=== PATIENT | male | born 1985 | race Caucasian/White ===

== ENCOUNTER 2023-02-25 07:31 | Inpatient (IN) | payer OTHER, BC ==
[2023-02-25] MEDS ORDERED: SODIUM CHLORIDE 0.9% 500 ML 500 ML IV STA (07:36)
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
[2023-02-25 07:42] LABS: Glucose,Whole Blood 197 mg/dL (70-110)
[2023-02-25 07:56] LABS: Basophils % (A) 0 %; Eosinophils # (A) 0.1 k/uL (0-0.7); Eosinophils % (A) 1 %; HGB 14.8 gm/dL (13.0-17.5); Lymphocytes # (A) 2.7 k/uL (1.0-4.8); Lymphocytes % (A) 27 %; MCHC 34.3 g/dL (31.0-37.0); MCV 93.3 fL (80.0-100.0); Monocytes # (A) 0.4 k/uL (0-1.0); Monocytes % (A) 4 %; Neutrophils # (A) 6.4 k/uL (1.3-7.7); Neutrophils % (A) 66 %; Platelet Count 192 k/uL (150-450); RBC 4.61 m/uL (4.30-5.90); RDW 12.5 % (11.5-15.5); WBC 9.8 k/uL (3.8-10.6)
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
[2023-02-25 08:08] LABS: AST 35 U/L (17-59); African American GFR (CKD) >90 (>60 ml/min/1.73 sqM); Albumin 4.2 g/dL (3.5-5.0); Alcohol <10 mg/dL; Alkaline Phosphatase 86 U/L (38-126); Anion Gap 15 mmol/L; Blood Urea Nitrogen 12 mg/dL (9-20); Calcium 8.9 mg/dL (8.4-10.2); Carbon Dioxide 17 mmol/L (22-30); Chloride 105 mmol/L (98-107); Glucose 198 mg/dL (74-99); Non-African American GFR(CKD) 81 (>60 ml/min/1.73 sqM); Potassium 4.1 mmol/L (3.5-5.1); Sodium 137 mmol/L (137-145); Total Bilirubin 0.6 mg/dL (0.2-1.3); Total Protein 7.4 g/dL (6.3-8.2)
[2023-02-25 08:16] LABS: ALT 37 U/L (4-49); INR 1.1 (<1.2); Prothrombin Time 11.4 sec (9.0-12.0)
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
[2023-02-25] MEDS ORDERED: HYDROmorphone 0.5 MG/0.5 ML SYRINGE IVP STA ×2 (08:27→09:04)
[2023-02-25 08:33] LABS: Partial Thromboplastin Time 20.6 sec (22.0-30.0)
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
[2023-02-25] MEDS ORDERED: ONDANSETRON 4 MG/2 ML VIAL IVP STA ×2 (09:32→09:35)
[2023-02-25] MEDS ORDERED: LORazepam 2 MG/ML INJ IV STA (09:32)
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
[2023-02-25] MEDS ORDERED: SODIUM CHLORIDE 0.9% 1,000 ML IV ONE (09:58)
[2023-02-25] MEDS: HYDROmorphone 0.5 MG/0.5 ML SYRINGE IVP PRN ×2 (10:43→14:07)
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
[2023-02-25] MEDS ORDERED: METOCLOPRAMIDE 5 MG/ML 2 ML VIAL IVP STA (14:13)
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
[2023-02-25] MEDS ORDERED: HYDROcodone/APAP 5-325MG 1 EACH TAB PO STA (16:09)
[2023-02-25] MEDS ORDERED: HYDROcodone/APAP 5-325MG 1 EACH TAB PO PRN (16:44)
[2023-02-25] MEDS ORDERED: ONDANSETRON 4 MG/2 ML VIAL IVP PRN (17:27)
[2023-02-25] MEDS: ONDANSETRON 4 MG/2 ML VIAL IVP PRN (17:33)
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
[2023-02-25 18:04] LABS: Cocaine Screen,Urine Not Detected (NotDetected); Opiate Screen,Urine Detected (NotDetected); Phencyclidine Screen,Urine Not Detected (NotDetected); Urn Cannabinoid Scrn Detected (NotDetected)
[2023-02-25 18:05] LABS: Amphetamine Screen,Urine Not Detected (NotDetected); Barbiturate Screen,Urine Not Detected (NotDetected); Benzodiazepines Screen,Urine Detected (NotDetected); Methadone Screen, Urine Not Detected (NotDetected); Oxycodone Screen, Urine Not Detected (NotDetected); Tricyclic Antidepressant,Urine Not Detected (NotDetected)
[2023-02-25] MEDS: KETOROLAC 15 MG/ML 1 ML VIAL IVP SCH (18:08)
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
[2023-02-25] MEDS: levETIRAcetam IV 500 MG/5 ML VIAL IVP SCH ×2 (20:26→20:51)
[2023-02-25] MEDS: MORPHINE SULFATE 2 MG/ML SYRINGE IVP PRN (20:26)
[2023-02-25] MEDS ORDERED: ALPRAZolam 0.25 MG TAB PO SCH (22:15)
[2023-02-25] MEDS: ALPRAZolam 0.25 MG TAB PO PRN (22:21)
[2023-02-25] MEDS: MELATONIN 5 MG TABLET PO SCH (22:21)
[2023-02-25] MEDS: traMADol 50 MG TAB PO PRN (22:28)
[2023-02-26] MEDS: KETOROLAC 15 MG/ML 1 ML VIAL IVP SCH ×5 (00:26→23:24)
[2023-02-26] MEDS: PANTOPRAZOLE 40 MG TABLET PO SCH (06:13)
[2023-02-26] MEDS: traMADol 50 MG TAB PO PRN ×3 (08:41→21:06)
[2023-02-26] MEDS: levETIRAcetam IV 500 MG/5 ML VIAL IVP SCH (08:43)
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
[2023-02-26] MEDS ORDERED: THIAMINE 100 MG TAB PO SCH (10:45)
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
[2023-02-26 13:03] LABS: Basophils % (A) 0 %; Eosinophils % (A) 0 %; HCT 41.7 % (39.0-53.0); HGB 14.1 gm/dL (13.0-17.5); Lymphocytes # (A) 1.3 k/uL (1.0-4.8); Lymphocytes % (A) 15 %; MCH 31.5 pg (25.0-35.0); MCHC 33.7 g/dL (31.0-37.0); MCV 93.3 fL (80.0-100.0); Mean Platelet Volume 8.1; Monocytes # (A) 0.4 k/uL (0-1.0); Monocytes % (A) 5 %; Neutrophils # (A) 6.8 k/uL (1.3-7.7); Neutrophils % (A) 79 %; Platelet Count 151 k/uL (150-450); RBC 4.47 m/uL (4.30-5.90); RDW 12.7 % (11.5-15.5); WBC 8.6 k/uL (3.8-10.6)
--- NOTE | 2023-02-26 13:33 | P.PN ---
Progress Note - Text Progress Note Date: 02/26/23 Patient seen and examined, I reviewed the note, discussed the case with the LINING SCRUBBER first hand and agree with the assessment and plan of Cruz Coeras NP. Please see my notes below for any additional recommendations. Family bedside. We discussed treatment options at this time we are still trying to treat him conservatively with a FLOOR SCRUBBER brace. He is sitting up at a 45 angle in bed and states he has no pain he moves his arms to pain but he does complain that he feels very stiff in between her shoulder blades and on the upper portion of his back as well as his chest. He denies any paresthesias numbness or tingling lower extremity weakness or any other issues related to this. He states he has not stood up yet. He denies inferior surface breath or chest pain. He has good strength bilateral lower extremities is also nerves intact at this time. We discussed different options of the same way for FLOOR SCRUBBER brace once he gets the FLOOR SCRUBBER brace he can get up and move around with it on and work with therapy. If he tolerates this well that you will continue with conservative management if he does not do without evidence questions about surgical management.
--- NOTE | 2023-02-26 13:55 | US ---
EXAMINATION TYPE: US carotid duplex BILAT DATE OF EXAM: 02/26/2023 COMPARISON: NONE CLINICAL INDICATION: Male, 37 years old with history of transient global amnesia; TIA TECHNIQUE: Carotid duplex ultrasound examination. Indirect Doppler criteria was utilized. FINDINGS: EXAM MEASUREMENTS: RIGHT: Peak Systolic Velocity (PSV) cm/sec ----- Right CCA: 90 ----- Right ICA: 74 ----- Right ECA: 82.7 ICA/CCA ratio: 0.8 RIGHT: End Diastole cm/sec ----- Right CCA: 26 ----- Right ICA: 34.8 ----- Right ECA: 7.1 LEFT: Peak Systolic Velocity (PSV) cm/sec ----- Left CCA: 79.8 ----- Left ICA: 76.9 ----- Left ECA: 81.3 ICA/CCA ratio: 1.0 LEFT: End Diastole cm/sec ----- Left CCA: 21.7 ----- Left ICA: 31.8 ----- Left ECA: 11.5 VERTEBRALS (direction of flow): Right Vertebral: Antegrade Left Vertebral: Antegrade Rhythm: Normal BOAT JOINER NOTES: No significant stenosis seen IMPRESSION: No significant hemodynamic stenosis Criteria for Assigning % of Stenosis / Diameter reduction (Estimation based on the indirect measurements of the internal carotid artery velocities (ICA PSV). 1. Normal (no stenosis)=ICA PSV < 125 cm/s: ratio < 2.0: ICA EDV<40 cm/s. 2. Less than 50% stenosis=ICA PSV < 125 cm/s: ratio < 2.0: ICA EDV<40 cm/s. 3. 50 to 69% stenosis=ICA PSV of 125 to 230 cm/s: ration 2.0 ? 4.0: ICA EDV 40-100 cm/s. 4. Greater than 70% stenosis to near occlusion= ICA PSV > 230 cm/s: ratio > 4.0: ICA EDV > 100 cm/s. 5. Near occlusion= ICA PSV velocities may be low or undetectable: variable ratio and ICA EDV. 6. Total occlusion=unable to detect flow.
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
--- NOTE | 2023-02-26 17:52 | CA ---
Transthoracic Echo Report Name: Kermit Aranda Age: 37 Gender: M : 1985 Exam Date: 02/26/2023 13:55 Exam Location: [facility] Ht (in): 70 Wt (lb): 166 Ordering Physician: Vega Saba MD Attending/Referring Phys: Director Of Mechanical Engineering Magdaleno Arcos Procedure CPT: Indications: Transient global amnesia Cardiac Hx: Technical Quality: Fair Contrast 1: Total Dose (mL): Contrast 2: Total Dose (mL): MEASUREMENTS (Male / Female) Normal Values 2D ECHO LV Diastolic Diameter PLAX 4.1 cm 4.2 - 5.9 / 3.9 - 5.3 cm LV Systolic Diameter PLAX 2.9 cm IVS Diastolic Thickness 1.0 cm 0.6 - 1.0 / 0.6 - 0.9 cm LVPW Diastolic Thickness 1.1 cm 0.6 - 1.0 / 0.6 - 0.9 cm LV Relative Wall Thickness 0.5 RV Internal Dim ED PLAX 2.7 cm LVOT Diameter 2.0 cm Aortic Root Diameter 2.9 cm LA Systolic Diameter LX 1.7 cm 3.0 - 4.0 / 2.7 - 3.8 cm LV Diastolic Volume MOD BP 55.1 cm??? 67 - 155 / 56 - 104 cm??? LV Systolic Volume MOD BP 16.5 cm??? 22 - 58 / 19 - 49 cm??? LV Ejection Fraction MOD BP 70.0 % >= 55 % LV Cardiac Index MOD BP 1158.6 cm???/min???m??? LV Diastolic Volume MOD 4C 65.2 cm??? LV Systolic Volume MOD 4C 27.1 cm??? LV Ejection Fraction MOD 4C 58.4 % LV Cardiac Index MOD 4C 1142.0 cm???/min???m??? LV Diastolic Length 4C 8.4 cm LV Systolic Length 4C 6.9 cm LV Diastolic Volume MOD 2C 46.6 cm??? LV Systolic Volume MOD 2C 10.0 cm??? LV Ejection Fraction MOD 2C 78.5 % LV Cardiac Index MOD 2C 1098.5 cm???/min???m??? LV Diastolic Length 2C 8.2 cm LV Systolic Length 2C 6.4 cm LA Volume 29.2 cm??? 18 - 58 / 22 - 52 cm??? Ascending Aorta Diameter 2.7 cm DOPPLER AV Peak Velocity 111.2 cm/s AV Peak Gradient 4.9 mmHg LVOT Peak Velocity 124.2 cm/s LVOT Peak Gradient 6.2 mmHg AV Area Cont Eq pk 3.5 cm??? MV Peak Velocity 99.4 cm/s MV Peak Gradient 4.0 mmHg MV Mean Velocity 42.6 cm/s MV Mean Gradient 0.9 mmHg MV Velocity Time Integral 39.0 cm MR Peak Velocity 114.7 cm/s MR Peak Gradient 5.3 mmHg Mitral E Point Velocity 101.7 cm/s Mitral A Point Velocity 45.3 cm/s Mitral E to A Ratio 2.2 MV Deceleration Time 209.3 ms MV E' Velocity 13.5 cm/s Mitral E to MV E' Ratio 7.5 TR Peak Velocity 93.5 cm/s TR Peak Gradient 3.5 mmHg Right Ventricular Systolic Press 8.5 mmHg FINDINGS Left Ventricle Normal LV size and wall thickness. Left ventricular ejection fraction is estimated at _55-60 %. Right Ventricle Normal right ventricular size. Right Atrium Normal right atrial size. Left Atrium Normal left atrial size. LA volume index= 15ml/m2 Mitral Valve Structurally normal mitral valve. Trace MR. Aortic Valve Trileaflet aortic valve. No aortic valve stenosis or regurgitation. Tricuspid Valve Structurally normal tricuspid valve. Trace TR. Pulmonic Valve Structurally normal pulmonic valve. No pulmonic regurgitation. Pericardium Normal pericardium. Aorta Normal size aortic root and proximal ascending aorta. CONCLUSIONS Normal LV systolic function Previewed by: Dr. Pineda Heath MD (Electronically Signed) Final Date: 26 February 2023 17:52
[2023-02-26] MEDS: ALPRAZolam 0.25 MG TAB PO PRN (19:12)
--- NOTE | 2023-02-26 19:17 | EEG ---
ELECTROENCEPHALOGRAM REPORT CLINICAL HISTORY: This is a 37-year-old gentleman with episode of transient global amnesia. The video EEG is obtained to evaluate for seizure and epileptiform activity. RELEVANT MEDICATIONS: Ativan. EEG TYPE: A routine 21-channel EEG with video using the 10/20 electrode placement system. DESCRIPTION: Wakefulness is only obtained. During awake state, the posterior-dominant rhythm consists of [id number] voltage of 9 to 10 Hz activity, that is well modulated and well sustained. There is no physiological stage II sleep architecture. There is no focal slowing. There is a moderate amount of left hemispheric myogenic artifact. There is also a [id number] amount of sweat artifact throughout the study. INTERICTAL AND ICTAL: None. ACTIVATION PROCEDURE: Photic stimulation did not evoke a posterior driving response. There is no abnormality during the photic stimulation. Hyperventilation is not performed. CLINICAL INTERPRETATION: This is a somewhat limited study because of myogenic artifact as well as sweat artifact. Otherwise, the background is normal, and there is no focal slowing, epileptiform discharge, or seizure on the EEG. A normal routine EEG does not rule out underlying epilepsy. Consider repeating the study down the line. Clinical correlation is recommended. MMODL / IJN: [id number] / MTDD
[2023-02-26] MEDS: MELATONIN 5 MG TABLET PO SCH (21:06)
[2023-02-27] MEDS: ALPRAZolam 0.25 MG TAB PO PRN ×2 (05:02→20:08)
[2023-02-27] MEDS: PANTOPRAZOLE 40 MG TABLET PO SCH (05:02)
[2023-02-27] MEDS: KETOROLAC 15 MG/ML 1 ML VIAL IVP SCH ×2 (05:02→20:07)
[2023-02-27 09:07] LABS: Basophils % (A) 0 %; Eosinophils # (A) 0.1 k/uL (0-0.7); Eosinophils % (A) 1 %; HCT 44.4 % (39.0-53.0); Lymphocytes # (A) 1.3 k/uL (1.0-4.8); Lymphocytes % (A) 18 %; MCH 31.7 pg (25.0-35.0); MCHC 33.8 g/dL (31.0-37.0); MCV 93.9 fL (80.0-100.0); Mean Platelet Volume 8.5; Monocytes # (A) 0.3 k/uL (0-1.0); Monocytes % (A) 4 %; Neutrophils # (A) 5.7 k/uL (1.3-7.7); Neutrophils % (A) 77 %; Platelet Count 152 k/uL (150-450); RBC 4.73 m/uL (4.30-5.90); RDW 12.8 % (11.5-15.5); WBC 7.4 k/uL (3.8-10.6)
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
[2023-02-27 09:27] LABS: ALT 22 U/L (4-49); AST 23 U/L (17-59); African American GFR (CKD) >90 (>60 ml/min/1.73 sqM); Albumin 4.2 g/dL (3.5-5.0); Alkaline Phosphatase 63 U/L (38-126); Anion Gap 7 mmol/L; Blood Urea Nitrogen 10 mg/dL (9-20); Calcium 9.1 mg/dL (8.4-10.2); Carbon Dioxide 29 mmol/L (22-30); Chloride 102 mmol/L (98-107); Glucose 122 mg/dL (74-99); Non-African American GFR(CKD) >90 (>60 ml/min/1.73 sqM); Potassium 3.7 mmol/L (3.5-5.1); Sodium 138 mmol/L (137-145); Total Bilirubin 0.8 mg/dL (0.2-1.3); Total Protein 7.4 g/dL (6.3-8.2)
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
[2023-02-27] MEDS: traMADol 50 MG TAB PO PRN ×2 (11:55→20:08)
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
[2023-02-27] MEDS: MORPHINE SULFATE 2 MG/ML SYRINGE IVP PRN (17:03)
[2023-02-27 18:02] LABS: Appearance,Urine Clear (Clear); Bacteria,Urine Many /hpf; Bilirubin,Urine Negative (Negative); Blood,Urine Small (Negative); Color,Urine Light Yellow; Glucose,Urine (UA) Negative (Negative); Ketones,Urine Trace (Negative); Leukocyte Esterase,Urine Large (Negative); Mucus,Urine Rare /hpf; Nitrite,Urine Positive (Negative); PH, Urine 6.5 (5.0-8.0); Protein,Urine Negative (Negative); RBC,Urine 2 /hpf (0-5); Urobilinogen,Urine <2.0 mg/dL (<2.0); WBC,Urine 24 /hpf (0-5)
[2023-02-27] MEDS: MELATONIN 5 MG TABLET PO SCH (20:08)
[2023-02-28] MEDS: traMADol 50 MG TAB PO PRN ×4 (04:11→22:35)
[2023-02-28] MEDS: PANTOPRAZOLE 40 MG TABLET PO SCH (04:11)
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
[2023-02-28] MEDS: TAMSULOSIN 0.4 MG CAP.ER.24H PO SCH (08:19)
[2023-02-28] MEDS: ALPRAZolam 0.25 MG TAB PO PRN ×2 (08:27→22:37)
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
[2023-02-28 09:32] LABS: Basophils % (A) 0 %; Eosinophils # (A) 0.1 k/uL (0-0.7); Eosinophils % (A) 1 %; HCT 45.7 % (39.0-53.0); HGB 15.6 gm/dL (13.0-17.5); Lymphocytes # (A) 1.7 k/uL (1.0-4.8); Lymphocytes % (A) 21 %; MCHC 34.2 g/dL (31.0-37.0); MCV 93.7 fL (80.0-100.0); Mean Platelet Volume 8.2; Monocytes # (A) 0.5 k/uL (0-1.0); Monocytes % (A) 6 %; Neutrophils # (A) 5.6 k/uL (1.3-7.7); Neutrophils % (A) 70 %; Platelet Count 153 k/uL (150-450); RBC 4.88 m/uL (4.30-5.90); RDW 12.4 % (11.5-15.5)
[2023-02-28 09:46] LABS: ALT 21 U/L (4-49); African American GFR (CKD) >90 (>60 ml/min/1.73 sqM); Albumin 4.4 g/dL (3.5-5.0); Anion Gap 9 mmol/L; Blood Urea Nitrogen 12 mg/dL (9-20); Calcium 9.2 mg/dL (8.4-10.2); Carbon Dioxide 28 mmol/L (22-30); Chloride 103 mmol/L (98-107); Glucose 98 mg/dL (74-99); Non-African American GFR(CKD) >90 (>60 ml/min/1.73 sqM); Sodium 140 mmol/L (137-145); Total Bilirubin 0.9 mg/dL (0.2-1.3)
[2023-02-28 09:56] LABS: AST 30 U/L (17-59); Potassium 4.1 mmol/L (3.5-5.1)
[2023-02-28 09:57] LABS: Alkaline Phosphatase 69 U/L (38-126)
[2023-02-28] MEDS: DOCUSATE 100 MG CAP PO PRN (14:07)
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
[2023-02-28] MEDS: MELATONIN 5 MG TABLET PO SCH (22:35)
[2023-03-01] MEDS: PANTOPRAZOLE 40 MG TABLET PO SCH (04:56)
[2023-03-01] MEDS: traMADol 50 MG TAB PO PRN ×2 (04:56→07:49)
[2023-03-01] MEDS: ONDANSETRON 4 MG/2 ML VIAL IVP PRN (07:49)
[2023-03-01] MEDS: TAMSULOSIN 0.4 MG CAP.ER.24H PO SCH (07:50)
[2023-03-01] MEDS: DOCUSATE 100 MG CAP PO PRN (07:58)
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
[2023-03-01 11:32] VITALS: BP 145/82; PULSE 62; RESP 16; TEMP 97.8
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
[2023-03-01 11:51] LABS: Appearance,Urine Clear (Clear); Bacteria,Urine Occasional /hpf; Bilirubin,Urine Negative (Negative); Blood,Urine Trace (Negative); Color,Urine Light Yellow; Glucose,Urine (UA) Negative (Negative); Ketones,Urine Negative (Negative); Leukocyte Esterase,Urine Large (Negative); Nitrite,Urine Positive (Negative); Protein,Urine Negative (Negative); RBC,Urine 2 /hpf (0-5); Specific Gravity,Urine 1.006 (1.001-1.035); Urobilinogen,Urine <2.0 mg/dL (<2.0); WBC,Urine 32 /hpf (0-5)
[2023-03-01] MEDS: ALPRAZolam 0.25 MG TAB PO PRN (15:35)
== END 2023-03-01 16:15 | disposition home or self-care (01) | DRG 565 ==
LOC: EC 07:31 → 3SCARD 09:58
PROVIDERS: ADMIT Internal Medicine; ATTEND Internal Medicine
DX: S22.22XA Fracture of body of sternum, initial encounter for closed fracture (principal); S22.029A Unspecified fracture of second thoracic vertebra, initial encounter for closed fracture; S32.010A Wedge compression fracture of first lumbar vertebra, initial encounter for closed fracture; S22.039A Unspecified fracture of third thoracic vertebra, initial encounter for closed fracture; S22.049A Unspecified fracture of fourth thoracic vertebra, initial encounter for closed fracture; S22.051A Stable burst fracture of T5-T6 vertebra, initial encounter for closed fracture; F32.A Depression, unspecified; F10.21 Alcohol dependence, in remission; G45.4 Transient global amnesia; E78.5 Hyperlipidemia, unspecified; S80.812A Abrasion, left lower leg, initial encounter; S80.811A Abrasion, right lower leg, initial encounter; S10.91XA Abrasion of unspecified part of neck, initial encounter; S20.319A Abrasion of unspecified front wall of thorax, initial encounter; F41.9 Anxiety disorder, unspecified; R33.9 Retention of urine, unspecified; R53.83 Other fatigue; T43.225A Adverse effect of selective serotonin reuptake inhibitors, initial encounter; Z79.899 Other long term (current) drug therapy; Z88.5 Allergy status to narcotic agent; V44.5XXA Car driver injured in collision with heavy transport vehicle or bus in traffic accident, initial encounter; W22.11XA Striking against or struck by driver side automobile airbag, initial encounter; Y92.410 Unspecified street and highway as the place of occurrence of the external cause; Z82.49 Family history of ischemic heart disease and other diseases of the circulatory system
CPT/HCPCS: 36415; 70450; 70553; 71045; 71260; 72125; 72129; 72132; 72141; 72146; 72170; 74177; 80053; 80306; 80320; 81001; 82607; 82746; 84443; 84484; 85025; 85610; 85730; 86850; 86900; 86901; 87040; 93005; 93270; 93306; 93880; 94760; 95816; 96374; 96375; 96376; 99291

== ENCOUNTER → 2023-05-20 | Outpatient (CLI) | payer BC, OTHER ==
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
== END | disposition home or self-care (01) ==
LOC: RADCTMAIN 11:17
PROVIDERS: ATTEND Orthopaedic Surgery
DX: S22.051A Stable burst fracture of T5-T6 vertebra, initial encounter for closed fracture (principal); M53.3 Sacrococcygeal disorders, not elsewhere classified; X58.XXXA Exposure to other specified factors, initial encounter
CPT/HCPCS: 72125; 72128; 72131

== ENCOUNTER 2023-07-16 09:05 | Emergency (ER) | payer OTHER ==
[2023-07-16 09:26] VITALS: RESP 20; TEMP 98
[2023-07-16] MEDS ORDERED: levETIRAcetam IV 500 MG/5 ML VIAL IVP STA (09:30)
--- NOTE | 2023-07-16 09:32 | ED ---
General Adult HPI - General Chief complaint: Seizure Stated complaint: ams Time Seen by Provider: 07/16/23 09:08 Source: patient, RN notes reviewed Mode of arrival: EMS Limitations: no limitations - History of Present Illness Initial comments: Patient is a pleasant 37-year-old male presents emergency department with concerns for possible seizure. Patient was in the car as a passenger with his father. Patient stared to the right and had shaking activity lasted around 5 minutes. Patient following this was altered for around 10 minutes. Patient sti ll is a little bit confused but returning back to normal. Patient did have an episode of possible seizure around 4-1/2 months ago however workup was inconclusive. Patient feels a little bit achy and drowsy at this time. Patient also feels slightly confused. No injury. - Related Data Home Medications Medication Instructions Recorded Confirmed Ezetimibe [Zetia] 10 mg PO DAILY 02/25/23 02/25/23 Previous Rx's Medication Instructions Recorded Docusate [Colace] 100 mg PO DAILY PRN cap 03/01/23 HYDROcodone/APAP 5-325MG [[place] 1 each PO Q4HR PRN tab 03/01/23 5-325] Melatonin 10 mg PO HS tab 03/01/23 Tamsulosin [Flomax] 0.4 mg PO PC-BRKFST cap 03/01/23 traMADol HCl [Ultram] 100 mg PO QID PRN tab 03/01/23 levETIRAcetam [Keppra] 500 mg PO Q12HR #60 tab 07/16/23 Allergies Allergy/AdvReac Type Severity Reaction Status Date / Time hydromorphone [From Dilaudid] AdvReac Nausea & Verified 02/25/23 15:27 Vomiting Review of Systems ROS Statement: Those systems with pertinent positive or pertinent negative responses have been documented in the HPI. ROS Other: All systems not noted in ROS Statement are negative. Constitutional: Denies: fever Eyes: Denies: eye pain ENT: Denies: ear pain Respiratory: Denies: cough Cardiovascular: Denies: chest pain Endocrine: Denies: fatigue Gastrointestinal: Denies: abdominal pain Genitourinary: Denies: dysuria Musculoskeletal: Denies: back pain Skin: Denies: rash Neurological: Reports: as per HPI. 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 Past Anesthesia/Blood Transfusion Reactions: No Reported Reaction Past Psychological History: Anxiety Smoking Status: Never smoker, Unknown if ever smoked Past Alcohol Use History: None Reported Past Drug Use History: None Reported - Past Family History Mother Additional Family Medical History / Comment(s): high cholesterol Father Additional Family Medical History / Comment(s): high cholesterol General Exam Limitations: no limitations General appearance: alert, in no apparent distress Head exam: Present: atraumatic, normocephalic Eye exam: Present: normal appearance, PERRL, EOMI ENT exam: Present: other (Tongue abrasions) Neck exam: Present: normal inspection. Absent: tenderness, meningismus Respiratory exam: Present: normal lung sounds bilaterally Cardiovascular Exam: Present: regular rate, normal rhythm GI/Abdominal exam: Present: soft. Absent: tenderness Extremities exam: Present: normal inspection, full ROM. Absent: tenderness Neurological exam: Present: alert, oriented X3, CN II-XII intact. Absent: motor sensory deficit Expanded Neurological exam: Present: protecting the airway Patient oriented to: Present: person, place, time Speech: Present: fluid speech Cranial nerves: EOM's Intact: Normal Motor strength exam: RUE: 5, LUE: 5, RLE: 5, LLE: 5 Eye Response: (4) open spontaneously Motor Response: (6) obeys commands Verbal Response: (5) oriented Psychiatric exam: Present: normal affect, normal mood Skin exam: Present: normal color Course Vital Signs 07/16/23 07/16/23 09:14 09:19 Temperature 98 F Pulse Rate 112 H 100 Respiratory 16 20 Rate Blood Pressure 127/87 127/87 O2 Sat by Pulse 96 96 Oximetry EKG Findings - EKG Results: EKG: interpreted by ERMD (Left axis.), sinus rhythm, normal ST/T EKG shows: tachycardia Medical Decision Making - Medical Decision Making Was pt. sent in by a medical professional or institution (, PA, HEALTH SCREENER, urgent care, hospital, or residential...) When possible be specific @ -No Did you speak to anyone other than the patient for history (EMS, parent, family, police, friend...)? What history was obtained from this source @ -Father helps provide history of witnessed seizure activity Did you review nursing and triage notes (agree or disagree)? Why? @ -I reviewed and agree with nursing and triage notes Were old charts reviewed (outside hosp., previous admission, EMS record, old EKG, old radiological studies, urgent care reports/EKG's, residential records)? Report findings @ -No old charts were reviewed Differential Diagnosis (chest pain, altered mental status, abdominal pain women, abdominal pain men, vaginal bleeding, weakness, fever, dyspnea, syncope, headache, dizziness, GI bleed, back pain, seizure, CVA, palpatations, mental health, musculoskeletal)? @ -Differential Seizure: Recurrent seizure disorder, febrile seizure, alcohol withdrawal, stimulants, meningitis, encephalitis, intercranial hemorrhage, intracranial tumor, stroke, eclampsia, thyrotoxicosis, hypocalcemia, hyponatremia, hypernatremia, hypomagnesemia, psychogenic, this is not meant to be an all-inclusive list. EKG interpreted by me (3pts min.). @ -As above X-rays interpreted by me (1pt min.). @ -None done CT interpreted by me (1pt min.). @ -CT brain does not reveal acute abnormality U/S interpreted by me (1pt. min.). @ -None done What testing was considered but not performed or refused? (CT, X-rays, U/S, labs)? Why? @ -None What meds were considered but not given or refused? Why? @ -Patient requesting additional medication secondary to chronic back pain. Morphine will be provided. Did you discuss the management of the patient with other professionals (professionals i.e. , PA, HEALTH SCREENER, lab, RT, psych nurse, aids social worker, maker up folding, teacher, business practices officer, director case)? Give summary @ -No Was smoking cessation discussed for >3mins.? @ -No Was critical care preformed (if so, how long)? @ -No Were there social determinants of health that impacted care today? How? (Homelessness, low income, unemployed, alcoholism, drug addiction, transportation, low edu. Level, literacy, decrease access to med. care, shelter, rehab)? @ -No Was there de-escalation of care discussed even if they declined (Discuss DNR or withdrawal of care, Hospice)? DNR status @ -No What co-morbidities impacted this encounter? (DM, HTN, Smoking, COPD, CAD, Cancer, CVA, ARF, Chemo, Hep., AIDS, mental health diagnosis, sleep apnea, morbid obesity)? @ -None Was patient admitted / discharged? Hospital course, mention meds given and route, prescriptions, significant lab abnormalities, going to OR and other pertinent info. @ -Patient reevaluated. Patient alert and appropriate. Patient is oriented 3. Patient and family updated on results and plan. Patient will like to be discharged. Patient will be discharged with prescription for Keppra and recommend follow-up with primary care physician and urology. Patient does have a neurologist. Patient also has a back doctor that he states he'll follow-up with for his chronic back problems. Undiagnosed new problem with uncertain prognosis? @ -No Drug Therapy requiring intensive monitoring for toxicity (Heparin, Nitro, Insulin, Cardizem)? @ -No Were any procedures done? @ -No Diagnosis/symptom? @ -New-onset seizure Acute, or Chronic, or Acute on Chronic? @ -Acute Uncomplicated (without systemic symptoms) or Complicated (systemic symptoms)? @ -default Side effects of treatment? @ -No Exacerbation, Progression, or Severe Exacerbation? @ -No Poses a threat to life or bodily function? How? (Chest pain, [place], [place], pneumonia, PE, COPD, DKA, ARF, appy, cholecystitis, CVA, Diverticulitis, Homicidal, Suicidal, threat to staff... and all critical care pts) @ -No - Lab Data Result diagrams: 07/16/23 09:30 07/16/23 09:30 Lab Results 07/16/23 07/16/23 07/16/23 Range/Units 09:30 09:30 09:56 WBC 11.1 H (3.8-10.6) k/uL RBC 5.02 (4.30-5.90) m/uL Hgb 15.7 (13.0-17.5) gm/dL Hct 46.9 (39.0-53.0) % MCV 93.3 (80.0-100.0) fL MCH 31.2 (25.0-35.0) pg MCHC 33.5 (31.0-37.0) g/dL RDW 13.2 (11.5-15.5) % Plt Count 216 (150-450) k/uL MPV 8.0 Neutrophils % 81 % Lymphocytes % 15 % Monocytes % 3 % Eosinophils % 0 % Basophils % 0 % Neutrophils # 9.0 H (1.3-7.7) k/uL Lymphocytes # 1.6 (1.0-4.8) k/uL Monocytes # 0.3 (0-1.0) k/uL Eosinophils # 0.1 (0-0.7) k/uL Basophils # 0.0 (0-0.2) k/uL Sodium 139 (137-145) mmol/L Potassium 4.3 (3.5-5.1) mmol/L Chloride 102 (98-107) mmol/L Carbon Dioxide 23 (22-30) mmol/L Anion Gap 14 mmol/L BUN 14 (9-20) mg/dL Creatinine 1.08 (0.66-1.25) mg/dL Est GFR (CKD-EPI)AfAm >90 (>60 ml/min/1.73 sqM) Est GFR (CKD-EPI)NonAf 87 (>60 ml/min/1.73 sqM) Glucose 141 H (74-99) mg/dL Calcium 9.8 (8.4-10.2) mg/dL Magnesium 2.1 (1.6-2.3) mg/dL Total Bilirubin 0.7 (0.2-1.3) mg/dL AST 40 (17-59) U/L ALT 33 (4-49) U/L Alkaline Phosphatase 79 (38-126) U/L Total Protein 8.1 (6.3-8.2) g/dL Albumin 4.6 (3.5-5.0) g/dL Urine Color Light Yellow Urine Appearance Clear (Clear) Urine pH 5.0 (5.0-8.0) Ur Specific [place] 1.017 (1.001-1.035) Urine Protein 1+ H (Negative) Urine Glucose (UA) Negative (Negative) Urine Ketones Trace H (Negative) Urine Blood Small H (Negative) Urine Nitrite Negative (Negative) Urine Bilirubin Negative (Negative) Urine Urobilinogen <2.0 (<2.0) mg/dL Ur Leukocyte Esterase Negative (Negative) Urine RBC <1 (0-5) /hpf Urine WBC 1 (0-5) /hpf Granular Casts 36 (0) /lpf Urine Mucus Rare H (None) /hpf Urine Opiates Screen Not Detected (NotDetected) Ur Oxycodone Screen Not Detected (NotDetected) Urine Methadone Screen Not Detected (NotDetected) Ur Barbiturates Screen Not Detected (NotDetected) U Tricyclic Antidepress Not Detected (NotDetected) Ur Phencyclidine Scrn Not Detected (NotDetected) Ur Amphetamines Screen Not Detected (NotDetected) U Methamphetamines Scrn Not Detected (NotDetected) U Benzodiazepines Scrn Not Detected (NotDetected) Urine Cocaine Screen Not Detected (NotDetected) U Marijuana (THC) Screen Detected H (NotDetected) Serum Alcohol <10 mg/dL Disposition Clinical Impression: New onset seizure Disposition: HOME SELF-CARE Condition: Stable Instructions (If sedation given, give patient instructions): Seizure/Epilepsy Discharge Instructions & Follow-Up, New-Onset Seizure in Adults (ED) Additional Instructions: Prescription sent to pharmacy. Please do follow-up with your primary care physician in the next day or 2 for recheck. Please follow-up with her back doctor this week as planned. Please do follow-up with your neurologist in the next day or 2 for recheck as well. Return for recurrent seizures, weakness, fevers, worsening symptoms or any other concerns. [facility] does require no driving until 6 months seizure-free. Prescriptions: levETIRAcetam [Keppra] 500 mg PO Q12HR #60 tab Is patient prescribed a controlled substance at d/c from ED?: No Referrals: Ruben Pedersen MD [Primary Care Provider] - 1-2 days Time of Disposition: 11:30
[2023-07-16] MEDS ORDERED: ORPHENADRINE 30 MG/ML 2 ML VIAL IVP STA (10:05)
[2023-07-16 10:16] LABS: Basophils % (A) 0 %; Eosinophils # (A) 0.1 k/uL (0-0.7); Eosinophils % (A) 0 %; HCT 46.9 % (39.0-53.0); HGB 15.7 gm/dL (13.0-17.5); Lymphocytes # (A) 1.6 k/uL (1.0-4.8); Lymphocytes % (A) 15 %; MCH 31.2 pg (25.0-35.0); MCHC 33.5 g/dL (31.0-37.0); MCV 93.3 fL (80.0-100.0); Monocytes # (A) 0.3 k/uL (0-1.0); Monocytes % (A) 3 %; Neutrophils % (A) 81 %; Platelet Count 216 k/uL (150-450); RBC 5.02 m/uL (4.30-5.90); RDW 13.2 % (11.5-15.5); WBC 11.1 k/uL (3.8-10.6)
[2023-07-16 10:33] LABS: ALT 33 U/L (4-49); AST 40 U/L (17-59); African American GFR (CKD) >90 (>60 ml/min/1.73 sqM); Albumin 4.6 g/dL (3.5-5.0); Alcohol <10 mg/dL; Alkaline Phosphatase 79 U/L (38-126); Anion Gap 14 mmol/L; Blood Urea Nitrogen 14 mg/dL (9-20); Calcium 9.8 mg/dL (8.4-10.2); Carbon Dioxide 23 mmol/L (22-30); Chloride 102 mmol/L (98-107); Glucose 141 mg/dL (74-99); Magnesium 2.1 mg/dL (1.6-2.3); Non-African American GFR(CKD) 87 (>60 ml/min/1.73 sqM); Potassium 4.3 mmol/L (3.5-5.1); Sodium 139 mmol/L (137-145); Total Bilirubin 0.7 mg/dL (0.2-1.3); Total Protein 8.1 g/dL (6.3-8.2)
[2023-07-16 10:45] LABS: Appearance,Urine Clear (Clear); Bilirubin,Urine Negative (Negative); Blood,Urine Small (Negative); Color,Urine Light Yellow; Glucose,Urine (UA) Negative (Negative); Granular Casts,Urine 36 /lpf (0); Ketones,Urine Trace (Negative); Leukocyte Esterase,Urine Negative (Negative); Mucus,Urine Rare /hpf; Nitrite,Urine Negative (Negative); Protein,Urine 1+ (Negative); RBC,Urine <1 /hpf (0-5); Specific Gravity,Urine 1.017 (1.001-1.035); Urobilinogen,Urine <2.0 mg/dL (<2.0); WBC,Urine 1 /hpf (0-5)
--- NOTE | 2023-07-16 11:07 | CT ---
EXAMINATION TYPE: CT brain wo con CT DLP: 1299.3 mGycm, Automated exposure control for dose reduction was used. DATE OF EXAM: 07/16/2023 10:37 AM COMPARISON: None. CLINICAL INDICATION:Male, 37 years old with history of seizure activity, Seizure activity TECHNIQUE: Brain: Axial CT images of the brain were obtained with coronal and sagittal reformats created and rev iewed. Contrast used: None. Oral contrast used: None. FINDINGS: Extra-axial spaces: No abnormal extra-axial fluid collections. Ventricular system: Within normal limits. Cerebral parenchyma: No increased attenuation to suggest acute intraparenchymal hemorrhage. The gra y-white matter interface appears maintained. No significant atrophy. White matter unremarkable by C T. Cerebellum: No acute abnormality. Mass effect: No evidence of mass effect or midline shift. Intracranial vasculature: Unremarkable Soft tissues: Normal. Visualized orbits: Orbital contents appear grossly intact. Calvarium/osseous structures: No evidence of calvarial fracture. Paranasal sinuses and mastoid air cells: Clear MRI is more sensitive for detecting acute processes such as infarct, and may be considered if clinica lly warranted. IMPRESSION: No acute intracranial CT abnormality.
[2023-07-16 11:08] LABS: Amphetamine Screen,Urine Not Detected (NotDetected); Barbiturate Screen,Urine Not Detected (NotDetected); Benzodiazepines Screen,Urine Not Detected (NotDetected); Cocaine Screen,Urine Not Detected (NotDetected); Methadone Screen, Urine Not Detected (NotDetected); Opiate Screen,Urine Not Detected (NotDetected); Oxycodone Screen, Urine Not Detected (NotDetected); Phencyclidine Screen,Urine Not Detected (NotDetected); Tricyclic Antidepressant,Urine Not Detected (NotDetected); Urn Cannabinoid Scrn Detected (NotDetected)
[2023-07-16] MEDS ORDERED: MORPHINE SULFATE 4 MG/ML SYRINGE IVP STA (11:28)
[2023-07-16 13:07] VITALS: BP 130/68; PULSE 86
== END 2023-07-16 12:46 | disposition home or self-care (01) ==
LOC: EC 09:05
DX: G40.909 Epilepsy, unspecified, not intractable, without status epilepticus (principal); I44.4 Left anterior fascicular block; E78.5 Hyperlipidemia, unspecified; Z79.899 Other long term (current) drug therapy
CPT/HCPCS: 36415; 93005; 80053; 83735; 85025; 81001; 80306; 80320; 70450; 99285; 96374; 96375 ×2; J2270; J2360; J1953

== ENCOUNTER → 2023-07-29 | Outpatient (CLI) | payer OTHER ==
--- NOTE | 2023-07-29 13:48 | CT ---
EXAMINATION TYPE: CT CervThorLumbar spine wo con CT DLP: 1426.7 mGycm, Automated exposure control for dose reduction was used. DATE OF EXAM: 07/29/2023 1:21 PM CLINICAL INDICATION:Male, 38 years old with history of M54.2 CERVICALGIA; back pain COMPARISON: 05/20/2023. TECHNIQUE: Axial images of the thoracic and lumbar spine were obtained without contrast. Coronal and sagittal reformats were performed. CT Contrast: Contrast used: mL of , none. Oral contrast used: none. FINDINGS: There is a transitional vertebrae present. Counting from T1, * New L4 compression fracture from prior with 25% height loss. Mild retropulsion up to 3 mm. No sign ificant spinal canal stenosis. * New Mild cortical buckling of the L2 vertebrae superior endplate series 7 image 41 which is new. * New T7 vertebral body compression fracture with greater than 25% height loss mild retropulsion. * New T9 vertebral body compression fracture with greater than 25-50% height loss mild retropulsion. Stable appearing vertebral bodies within the upper thoracic spine areas of fracture. There is at leas t 50% height loss of T5 and 25% height loss of T2 and T3. No significant height loss of T4 vertebral body. There is transitional S1 vertebrae with lumbarization which demonstrates a large superior endpl ate Schmorl's node which has increased in size. The L2 vertebral body previously described as L1 on C T 02/25/2023 demonstrates similar compression deformity with 25% height loss. No evidence for signific ant spinal canal or neural foraminal stenosis at any of these levels or the remainder of the spine. No evidence for new acute fractures. There is mild osteophyte formation and facet joint arthropathy t hroughout the spine otherwise. Bilateral renal calculi measuring up to 4 mm on the right and 3 mm on the left. Lobulated contour to the liver. IMPRESSION: * New L4 compression fracture from prior with 25% height loss. Mild retropulsion up to 3 mm. No sign ificant spinal canal stenosis. * New Mild cortical buckling of the L2 vertebrae superior endplate series 7 image 41 which is new. * New T7 vertebral body compression fracture with greater than 25% height loss mild retropulsion. * New T9 vertebral body compression fracture with greater than 25-50% height loss mild retropulsion. * Stable compression deformities T2-T5 and the L2 vertebral body (previously described as L1) there is a transitional vertebrae at S1 with enlarging superior endplate Schmorl's node. * No evidence for significant spinal canal or neural foraminal stenosis.
== END | disposition home or self-care (01) ==
LOC: RADCTMAIN 12:51
PROVIDERS: ATTEND Orthopaedic Surgery
DX: S32.010A Wedge compression fracture of first lumbar vertebra, initial encounter for closed fracture (principal); M54.6 Pain in thoracic spine; M54.2 Cervicalgia
CPT/HCPCS: 72125; 72128; 72131

== ENCOUNTER → 2023-08-09 | Outpatient (CLI) | payer OTHER ==
--- NOTE | 2023-08-09 18:27 | BD ---
EXAMINATION TYPE: Axial Bone Density DATE OF EXAM: 08/09/2023 CLINICAL HISTORY: 38 years old Male. ICD-10 CODE: M89.9 DISORDER OF BONE, UNSPECIFIED Height: 65.5 in Weight: 152 lbs FRAX RISK QUESTIONS: History of Fracture in Adulthood: l-spine and t-spine fx age 37; sternum and ribs fx age 37 Secondary Osteoporosis: 5. Chronic liver disease: fatty liver RISK FACTORS HISTORY OF: Spine Fracture: t-spine and l-spine fx age 37 When: History of Wrist Fracture: lt wrist fx age 13 EXAM MEASUREMENTS: Bone mineral densitometry was performed using the [employer] UD System. Bone mineral density about the R hip (g/cm2): 0.890 Bone mineral density about the L hip (g/cm2): 0.883 T Score values are as follows: -----R Neck: -1.3 -----L Neck: -1.1 -----R Total: -0.9 -----L Total: -1.0 Z Score values are as follows: -----R Neck: -1.2 -----L Neck: -1.0 -----R Total: -1.1 -----L Total: -1.2 Bone mineral density baseline Bone mineral density about the R Wrist (g/cm2): 0.782 T Score values are as follows: -----Dist. R+U: 0.6 -----Prox. R+U: 0.3 -----Radius total: 0.4 Z Score values are as follows: -----Dist. R+U: 0.6 -----Prox. R+U: 0.3 -----Radius total: 0.4 Bone mineral density baseline IMPRESSION: Osteopenia (T Score between -2.5 and -1). There is slightly increased risk of fracture and the patient may be considered for treatment. Re-Screen 2-5 years. NOTE: T-SCORE=SD OF THE YOUNG ADULT MEAN.
== END | disposition home or self-care (01) ==
LOC: RADBDWWP 10:01
PROVIDERS: ATTEND Orthopaedic Surgery
DX: M85.89 Other specified disorders of bone density and structure, multiple sites (principal)
CPT/HCPCS: 77080

== ENCOUNTER → 2024-02-10 | Outpatient (CLI) | payer OTHER ==
--- NOTE | 2024-02-10 08:28 | US ---
EXAMINATION TYPE: US liver DATE OF EXAM: 02/10/2024 COMPARISON: NONE CLINICAL INDICATION: Male, 38 years old with history of R94.5 ABNORMAL RESULTS OF LIVER FUNCTION STUD IES; abn lft's, patient states he has extra lobes in liver, h/o liver biopsy, cholecystectomy TECHNIQUE: Multiple sonographic images of the right upper quadrant are obtained. FINDINGS: EXAM MEASUREMENTS: Liver Length: 12.3 cm Gallbladder Wall: surgically absent CBD: 0.7 cm Right Kidney: 10.5 x 4.7 x 5.7cm Pancreas: wnl Liver: nodular and difficult to penetrate , no evidence for mass. Gallbladder: surgically absent Evidence for sonographic Cisneros's sign: no CBD: wnl Right Kidney: wnl IMPRESSION: 1. Nodular morphology to the liver as seen on prior CTs. Findings could be anatomic variant. Correla te for cirrhosis. 2. Hepatic steatosis.
== END | disposition home or self-care (01) ==
LOC: RADUSWWP 06:53
PROVIDERS: ATTEND Internal Medicine
DX: R94.5 Abnormal results of liver function studies (principal); K76.0 Fatty (change of) liver, not elsewhere classified
CPT/HCPCS: 76705